=== PATIENT | female | born 1995 | race American Indian/Alaskan Native ===

== ENCOUNTER 2016-08-21 19:36 | Emergency (ER) | payer MEDICAID ==
[2016-08-21] MEDS ORDERED: TYLENOL PO ONE (19:52)
[2016-08-21 20:26] LABS: Bacteria,Urine 1+ /HPF (Negative); Bilirubin,Urine NEG (Negative); Blood,Urine SM (Negative); Ketones,Urine 20 mg/dL (Negative); Leukocyte Esterase,Urine MOD (Negative); Nitrite,Urine NEG (Negative); Urobilinogen,Urine < 2.0 mg/dL (<2.0)
[2016-08-21 20:56] LABS: Basophils % (Auto) 0.2 % (0.0-1.8); Eosinophils % (Auto) 0.2 % (0.0-4.3); Hematocrit 36.3 % (30.3-42.9); Hemoglobin 11.2 gm/dl (10.1-14.3); Mean Corpuscular HGB Conc 31 % (30-34); Platelet Count 279 K/mm3 (140-440); Red Blood Count 5.42 M/mm3 (3.65-5.03); Red Cell Distribution Width 16.1 % (13.2-15.2); White Blood Count 10.1 K/mm3 (4.5-11.0)
[2016-08-21 21:01] LABS: Anion Gap 20 mmol/L; BUN/Creatinine Ratio 11.25; Blood Urea Nitrogen 9 mg/dL (7-17); Calcium 8.3 mg/dL (8.4-10.2); Carbon Dioxide 20 mmol/L (22-30); Chloride 98.8 mmol/L (98-107); Glucose 94 mg/dL (65-100); Potassium 3.6 mmol/L (3.6-5.0); Sodium 135 mmol/L (137-145)
[2016-08-21 21:05] LABS: Mean Corpuscular Hemoglobin 21 pg (28-32); Mean Corpuscular Volume 67 fl (79-97)
[2016-08-21 21:56] VITALS: BP 109/73
[2016-08-21] MEDS ORDERED: MORPHINE IM ONE (23:36)
[2016-08-21] MEDS ORDERED: XYLOCAINE 1% MPF 5 mL INFILTRATI ONE (23:38)
[2016-08-21] MEDS ORDERED: ROCEPHIN IM ONE (23:38)
--- NOTE | 2016-08-21 23:43 | Emergency Department Report ---
ED Female HPI - General Chief complaint: Fever Stated complaint: BODY ACHE/FLU SX Time Seen by Provider: 08/21/16 23:14 Source: patient Mode of arrival: Wheelchair Limitations: No Limitations - History of Present Illness Initial comments: This is a 21-year-old female well-nourished with nontoxic or ill in appearance that presents with fever, chills, generalized body aches, and back pain 4 days. Patient also complains of dysuria and feeling of on and being bladder. Patient denies any chest pain, pelvic pain, vaginal bleeding, vaginal discharge , shortness of breath, numbness, tingling, headache, stiff neck, nausea or vomiting, abdominal pain. Patient denies past medical history besides asthma area denies any drug allergies. Last menstrual cycle 08/18/2016. MD Complaint: dysuria, other -: Gradual, days(s) (4) Radiation: non-radiating Severity: mild Severity scale (0 -10): 8 Quality: stabbing, aching Consistency: constant Improves with: none Worsens with: none Are you Now?: No Last Menstrual Period: 08/18/16 EDC: 05/25/17 Associated Symptoms: fever/chills, dysuria. denies: vaginal discharge, vaginal bleeding, abdominal pain, nausea/vomiting, headaches, loss of appetite, hematuria, rash, seizure, shortness of breath, syncope, weakness - Related Data Previous Rx's Medication Instructions Recorded Last Taken Type Ibuprofen [Motrin 600 MG tab] 600 mg PO Q8H PRN #15 tablet 08/21/16 Unknown Rx Levofloxacin [Levaquin TAB] 750 mg PO QDAY #7 tablet 08/21/16 Unknown Rx Allergies Allergy/AdvReac Type Severity Reaction Status Date / Time No Known Allergies Allergy Unverified 03/01/15 10:30 ED Review of Systems ROS: Stated complaint: BODY ACHE/FLU SX Other details as noted in HPI Constitutional: denies: chills, fever Eyes: denies: eye pain, eye discharge, vision change ENT: denies: ear pain, throat pain Respiratory: denies: cough, shortness of breath, wheezing Cardiovascular: denies: chest pain, palpitations Endocrine: no symptoms reported Gastrointestinal: denies: abdominal pain, nausea, diarrhea Genitourinary: denies: urgency, dysuria, discharge Musculoskeletal: denies: back pain, joint swelling, arthralgia Skin: denies: rash, lesions Neurological: denies: headache, weakness, paresthesias Psychiatric: denies: anxiety, depression Hematological/Lymphatic: denies: easy bleeding, easy bruising ED Past Medical Hx - Past Medical History Hx Congestive Heart Failure: No Hx Diabetes: No Hx Asthma: Yes (childhood only) Hx COPD: No Hx HIV: No Additional medical history: gallstones - Surgical History Additional Surgical History: liposuction - Social History Smoking Status: Never Smoker Substance Use Type: None - Medications Home Medications: Home Medications Medication Instructions Recorded Confirmed Last Taken Type Ibuprofen [Motrin 600 MG tab] 600 mg PO Q8H PRN #15 tablet 08/21/16 Unknown Rx Levofloxacin [Levaquin TAB] 750 mg PO QDAY #7 tablet 08/21/16 Unknown Rx ED Physical Exam - General Limitations: No Limitations General appearance: alert, in no apparent distress - Head Head exam: Present: atraumatic, normocephalic, normal inspection - Eye Eye exam: Present: normal appearance, PERRL, EOMI. Absent: scleral icterus, conjunctival injection, nystagmus, periorbital swelling, periorbital tenderness Pupils: Present: normal accommodation - ENT ENT exam: Present: normal exam, normal orophraynx, mucous membranes moist, TM's normal bilaterally, normal external ear exam - Neck Neck exam: Present: normal inspection, full ROM. Absent: tenderness, meningismus, lymphadenopathy, thyromegaly - Respiratory Respiratory exam: Present: normal lung sounds bilaterally. Absent: respiratory distress, wheezes, rales, rhonchi, stridor, chest wall tenderness, accessory muscle use, decreased breath sounds, prolonged expiratory - Cardiovascular Cardiovascular Exam: Present: regular rate, normal rhythm, normal heart sounds. Absent: bradycardia, tachycardia, irregular rhythm, systolic murmur, diastolic murmur, rubs, gallop - GI/Abdominal GI/Abdominal exam: Present: soft, normal bowel sounds. Absent: distended, tenderness, guarding, rebound, rigid, diminished bowel sounds - Expanded GI/Abdominal Exam Expanded GI/Abdominal exam: Absent: psoas sign, obturator sign, heel tap sign, Gonzalez's sign, Rovsing's sign, tenderness at Mcburney's Point, ascites - Rectal Rectal exam: Present: deferred - Extremities Exam Extremities exam: Present: normal inspection, full ROM, normal capillary refill. Absent: tenderness, pedal edema, joint swelling, calf tenderness - Back Exam Back exam: Present: normal inspection, full ROM, tenderness, CVA tenderness (R) , CVA tenderness (L). Absent: muscle spasm, paraspinal tenderness, vertebral tenderness, rash noted - Neurological Exam Neurological exam: Present: alert, oriented X3, CN II-XII intact, normal gait - Psychiatric Psychiatric exam: Present: normal affect, normal mood - Skin Skin exam: Present: warm, dry, intact, normal color. Absent: rash ED Course Vital Signs 08/21/16 08/21/16 08/21/16 19:47 19:55 21:55 Temperature 100.1 F H 99.3 F Pulse Rate 110 H 102 H Respiratory 18 18 18 Rate Blood Pressure 112/80 Blood Pressure 109/73 [Right] O2 Sat by Pulse 100 100 Oximetry - Reevaluation(s) Reevaluation #1: 08/21/16 23:44 Mother is currently present at bedside. Patient is laying with No signs of distress noted. ED Medical Decision Making - Lab Data Result diagrams: 08/21/16 20:29 08/21/16 20:29 - Medical Decision Making Ed course: This is a 21-year-old female that presents with UTI 1- after my physical exam, due to pt having positive CVA tenderness, bodyaches, and fever with tachycardia and UA with UTI, pt received Rocephine 250mg IM and morhpine for pain. Patient was instructed not to operate heavy machinery due to the sedation/drowsiness of morphine. Mother was notified to have mother drive the patient home. 2- levofloxacin hasn't prescribed for 7 days 3- pt was instructed to follow-up with her primary care doctor in 24 hours. 4- at time time of discharge, the patient does not seem toxic or ill in appearance. No acute signs of distress noted. Patient agrees to discharge treatment plan of care. No further questions noted by the patient. Critical care attestation.: If time is entered above; I have spent that time in minutes in the direct care of this critically ill patient, excluding procedure time. ED Disposition Clinical Impression: UTI (urinary tract infection) Qualifiers: Urinary tract infection type: site unspecified Hematuria presence: with hematuria Qualified Code(s): N39.0 - Urinary tract infection, site not specified ; R31.9 - Hematuria, unspecified Disposition: DC-01 TO HOME OR SELFCARE Is pt being admited?: No Does the pt Need Aspirin: No Condition: Stable Instructions: Dysuria (ED), Urinary Tract Infection in Women (ED), Levofloxacin (By mouth), Ibuprofen (By mouth) Additional Instructions: Follow-up with her primary care doctor in 24 hours or if symptoms worsen and are bearable return to emergency room as soon as possible. Take full course of antibodies as prescribed and take ibuprofen for pain/fever as prescribed as needed. Prescriptions: Ibuprofen [Motrin 600 MG tab] 600 mg PO Q8H PRN #15 tablet PRN Reason: Pain Levofloxacin [Levaquin TAB] 750 mg PO QDAY #7 tablet Referrals: [facility] [Outside] - 3-5 Days [facility] [Outside] - 3-5 Days PRIMARY CARE, [Primary Care Provider] - 24 Hours JENNIFER DONG MD [Referring] - 24 Hours Forms: Work/School Release Form(ED)
== END 2016-08-22 00:42 | disposition home or self-care (01) ==
LOC: ED 19:36
DX: N39.0 Urinary tract infection, site not specified (principal); R31.9 Hematuria, unspecified; J45.909 Unspecified asthma, uncomplicated
CPT/HCPCS: 36415; 80048; 81001; 81025; 85025; 96372; 99283; J0696; J2270